=== PATIENT | female | born 1985 | race Caucasian/White ===

== ENCOUNTER 2018-06-04 16:31 | Emergency (ER) | payer MEDICAID ==
[~2018-06-04] VITALS: Ht 157.5 cm; Wt 89.1 kg
[~2018-06-04 16:31] MED LIST: PREN1TAB49 PO
[2018-06-04 16:36] VITALS: Ht 157.5 cm; Wt 89.1 kg
[2018-06-04] MEDS ORDERED: ACETAMINOPHEN 500 MG TAB PO STA (17:59)
[2018-06-04] MEDS ORDERED: CEPHALEXIN 500 MG CAP PO ONE (18:00)
[2018-06-04] MEDS ORDERED: CEPH500C PO (18:03)
[2018-06-04] MEDS ORDERED: ACET500C5 PO (18:03)
--- NOTE | 2018-06-04 18:07 | ERD ---
ER Documentation Chief Complaint Chief Complaint pt is bib with c/o abd pain since yesterday 14 wks HPI 32-year-old female presents with intermittent sharp lower abdominal pain since yesterday. She is approximately 14 weeks by dates. She denies dysuria, vaginal bleeding, fevers, vomiting. She denies any right or left-sided abdominal pain. She denies upper abdominal pain. She is referred by OB for evaluation for GI causes of pain. She had positive heart tones in the clinic. ROS All systems reviewed and are negative except as per history of present illness. Medications Home Meds Active Scripts Acetaminophen* (Tylophen*) 500 Mg Capsule, 1 CAP PO Q6H PRN for PAIN AND OR ELEVATED TEMP, #15 CAP Prov:BROWN BECKER MD 06/04/18 Cephalexin* (Cephalexin*) 500 Mg Capsule, 500 MG PO BID for 5 Days, #10 CAP Prov:BROWN BECKER MD 06/04/18 Reported Medications Vits W-Ca,Fe,Fa(<1MG) () 1 Tab Tablet, 1 TAB PO d 09/22/10 Vits W-Ca,Fe,Fa(<1MG) () 1 Tab Tablet, 1 TAB PO DAILY 09/19/10 Allergies Allergies: Coded Allergies: No Known Allergy (Verified , 09/19/10) PMhx/Soc Medical and Surgical Hx: pt denies Medical Hx, pt denies Surgical Hx Hx Alcohol Use: No Hx Substance Use: No Hx Tobacco Use: No Smoking Status: Never smoker FmHx Family History: No diabetes, No coronary disease, No other Physical Exam Vitals Vital Signs Date Temp Pulse Resp B/P (MAP) Pulse Ox O2 O2 Flow FiO2 Time Delivery Rate 06/04/18 98.9 85 16 137/58 98 16:36 (84) Physical Exam Const: No acute distress Head: Atraumatic Eyes: Normal Conjunctiva ENT: Normal External Ears, Nose and Mouth. Neck: Full range of motion. No meningismus. Resp: Clear to auscultation bilaterally Cardio: Regular rate and rhythm, no murmurs Abd: Soft, non tender, non distended. Normal bowel sounds Skin: No petechiae or rashes Back: No midline or flank tenderness Ext: No cyanosis, or edema Neur: Awake and alert Psych: Normal Mood and Affect Results 24 hrs Laboratory Tests Test 06/04/18 17:29 Urine Color YELLOW Urine Clarity SLIGHTLY CLOUDY Urine pH 7.0 Urine Specific [place] 1.012 Urine Ketones NEGATIVE mg/dL Urine Nitrite NEGATIVE mg/dL Urine Bilirubin NEGATIVE mg/dL Urine Urobilinogen NEGATIVE mg/dL Urine Leukocyte Esterase 1+ Scott/ul Urine Microscopic RBC 1 /HPF Urine Microscopic WBC 3 /HPF Urine Squamous Epithelial Cells FEW /HPF Urine Bacteria FEW /HPF Urine Hemoglobin NEGATIVE mg/dL Urine Glucose NEGATIVE mg/dL Urine Total Protein NEGATIVE mg/dl Current Medications Medications Dose Sig/Svetlana Start Time Status Last (Trade) Ordered Route PRN Stop Time Admin Dose Reason Admin 500 mg ONCE STAT 06/04/18 UNV Acetaminophen PO 17:59 (Tylenol 06/04/18 18:00 Tab) Cephalexin 500 mg ONCE ONCE 06/04/18 UNV (Keflex) PO 18:00 06/04/18 18:01 Procedures/MDM Patient presents with intermittent lower abdominal pain of second trimester today. She has no vaginal bleeding. She currently has no appreciable significant tenderness. Urine shows white blood cells and leukocyte esterase. Ultrasound shows normal-appearing 14-week intrauterine . Current signs or symptoms do not suggest appendicitis, tubo-ovarian abscess, surgical abdomen. She is well-appearing and has minimal symptoms. We will treat with Keflex, Tylenol, primary care follow-up and return precautions for bleeding, fevers, vomiting, worsening pain, new worsening symptoms. The patient was stable with no new complaints during the ER course. Clinically, there is no current evidence to suggest meningitis, sepsis, acute abdomen, pneumonia, stroke, acute coronary syndrome, pulmonary embolism, aortic dissection or any other emergent condition appearing to require further evaluation or hospitalization. Patient counseled regarding my diagnostic impression and care plan. Prior to discharge all questions answered. Pt agrees with treatment plan and understands strict return precautions. Pt is instructed to follow up with primary care provider within 24- 48 hours. Precautionary instructions provided including instructions to return to the ER if not improving or for any worsening or changing symptoms or concerns. Departure Diagnosis: Primary Impression: UTI (urinary tract infection) Urinary tract infection type: acute cystitis Hematuria presence: without hematuria Qualified Codes: N30.00 - Acute cystitis without hematuria Additional Impression: Pelvic pain complicating Trimester: second trimester Qualified Codes: O26.892 - Other specified related conditions, second trimester; R10.2 - Pelvic and perineal pain Condition: Stable Patient Instructions: Understanding Urinary Tract Infections (UTIs), Pelvic Pain In : Unclear (2-3 Trimester) Additional Instructions: hay poquito infeccion en orina y vamaos a tratar. ultrsasonido normal hoy. Cheque otro vez con arteaga doctor primario en el proximo barnes or regresa para mas o nueva simptomas- sangrada, fiebre, mas dolor. BROWN BECKER MD Jun 04, 2018 18:07
[2018-06-04 18:28] VITALS: BP 122/77; PULSE 76; RESP 16
== END 2018-06-04 18:29 | disposition home or self-care (01) ==
LOC: FTE 16:31
DX: O23.42 Unspecified infection of urinary tract in pregnancy, second trimester (principal); R10.2 Pelvic and perineal pain; Z3A.14 14 weeks gestation of pregnancy
CPT/HCPCS: 76805; 81001; Z7502; Z7610

== ENCOUNTER 2018-10-12 18:23 | Outpatient (CLI) | payer MEDICAID ==
[~2018-10-12] VITALS: Ht 162.6 cm; Wt 106.8 kg
[~2018-10-12 18:23] MED LIST changes: +ACET500C5 PO; +CEPH500C PO
[2018-10-12 18:55] VITALS: BP 124/72; PULSE 80; RESP 18; Ht 162.6 cm; Wt 106.8 kg
[2018-10-12] MEDS ORDERED: PHENAZOPYRIDINE 100 MG TAB PO ONE (19:30)
[2018-10-12] MEDS ORDERED: TERBUTALINE 1 MG/ML INJ SC ONE ×2 (21:30→22:30)
== END 2018-10-12 22:40 | disposition home or self-care (01) ==
LOC: OBT 18:23 → L-D 18:24 → OBT 22:40
PROVIDERS: ATTEND Obstetrics & Gynecology
DX: O26.893 Other specified pregnancy related conditions, third trimester (principal); Z3A.34 34 weeks gestation of pregnancy; R10.2 Pelvic and perineal pain
CPT/HCPCS: 76818; 81001; 87086; 96372; J3105; Z7500; Z7610; G0463